=== PATIENT | male | born 1995 | race Caucasian/White ===

== ENCOUNTER 2016-12-29 19:58 | Emergency (ER) | payer MEDICAID ==
[~2016-12-29] VITALS: Ht 167.6 cm; Wt 68.0 kg
[2016-12-29 20:24] VITALS: BP 145/92
--- NOTE | 2016-12-29 21:33 | NUR ---
PATIENT LEFT WITHOUT BEING SEEN BY DR. Chisholm. NO FURTHER CARE PROVIDED FOR PATIENT.
== END 2016-12-29 21:33 | disposition left against medical advice (07) ==
LOC: MED 19:58
DX: S61.412A Laceration without foreign body of left hand, initial encounter (principal); X58.XXXA Exposure to other specified factors, initial encounter; Z53.21 Procedure and treatment not carried out due to patient leaving prior to being seen by health care provider

== ENCOUNTER 2016-12-31 04:20 | Emergency (ER) | payer MEDICAID ==
[~2016-12-31] VITALS: Ht 167.6 cm; Wt 71.4 kg
[2016-12-31 04:27] VITALS: BP 112/68
--- NOTE | 2016-12-31 04:36 | NUR ---
PT PRESENT TO ER WITH LACERATION ON HIS LEFT HAND S/P WASHING DISHES AND ACCIDENTALLY CUT HIS LEFT HAND 2 DAYS AGO.
--- NOTE | 2016-12-31 04:37 | NUR ---
Dr. Malcolm evaluating patient at bedside.
[2016-12-31] MEDS ORDERED: BACITRACIN OINT 500 UNITS/GM PKT TP ONE (04:40)
[2016-12-31 04:54] VITALS: BP 107/65
--- NOTE | 2016-12-31 04:55 | NUR ---
Patient discharged with v/s stable. Written and verbal after care instructions given and explained. Patient alert, oriented and verbalized understanding of instructions. Ambulatory with steady gait. All questions addressed prior to discharge. ID band removed. Patient advised to follow up with PMD. Rx of BACITRACIN 500UNIT/G TOPICAL OINTMENT given. Patient educated on indication of medication including possible reaction and side effects. Opportunity to ask questions provided and answered.
== END 2016-12-31 04:55 | disposition home or self-care (01) ==
LOC: MED 04:20
DX: S61.412A Laceration without foreign body of left hand, initial encounter (principal); W45.8XXA Other foreign body or object entering through skin, initial encounter; Y93.G1 Activity, food preparation and clean up; Y92.89 Other specified places as the place of occurrence of the external cause; Y99.8 Other external cause status
CPT/HCPCS: 99283